=== PATIENT | female | born 1995 | race Caucasian/White ===

== ENCOUNTER → 2017-01-07 14:34 | Outpatient (CLI) | payer MEDICAID ==
[~2017-01-07 14:34] MED LIST: IBUPROFEN600 MG PO; PERCOCET 5-3251 TAB PO; PRENATAL COMPLE1 TAB PO
[2017-01-07 15:36] LABS: BASOPHILS 0.1 % (0.0-2.0); EOSINOPHILS 0.8 % (0-7); HEMATOCRIT 35.3 % (36.0-48.0); HEMOGLOBIN 11.6 g/dL (12-16); IMMATURE GRANULOCYTES 0.2 % (0-5); LYMPHOCYTES 17.5 % (15-50); MCH 28.1 pg (26.0-34.0); MCHC 32.9 g/dL (31.0-37.0); MCV 85.5 fL (80.0-100.0); MEAN PLATELET VOLUME 10.4 fL (7.4-10.4); MONOCYTES 9.6 % (2-11); NEUTROPHILS 71.8 % (40-80); PLATELET COUNT 200 10x3/uL (130-400); RBC 4.13 10x6/uL (4.00-5.40); WBC 9.1 10x3/uL (4.8-10.8)
[2017-01-07 15:41] LABS: APPEARANCE HAZY (CLEAR); BACTERIA MODERATE /hpf (NONE SEEN); BILIRUBIN NEGATIVE (NEGATIVE); COLOR YELLOW (YELLOW); GLUCOSE NEGATIVE (NEGATIVE); KETONE NEGATIVE (NEGATIVE); LEUKOCYTE ESTERASE TRACE (NEGATIVE); NITRITE NEGATIVE (NEGATIVE); PROTEIN NEGATIVE (NEGATIVE); RED CELLS - URINE OCC /hpf (0-5); UROBILINOGEN NORMAL (NORMAL)
[2017-01-07 16:00] LABS: ALKALINE PHOSPHATASE 107 U/L (46-116); ALT (SGPT) 12 U/L (10-68); BILIRUBIN - DIRECT 0.11 mg/dL (0.00-0.30); BILIRUBIN - INDIRECT 0.27 mg/dL (0.00-1.00); BILIRUBIN - TOTAL 0.38 mg/dL (0.2-1.3); CALC OSMOLALITY 273 mosm/kg (275-300); CALCIUM 8.5 mg/dL (8.5-10.1); CARBON DIOXIDE 21.3 mmol/L (21.0-32.0); CHLORIDE - SERUM 105 mmol/L (98-107); CREATININE - SERUM 0.6 mg/dL (0.6-1.3); GLUCOSE 71 mg/dL (74-106); PROTEIN - SERUM 6.9 g/dL (6.4-8.2); SODIUM 139 mmol/L (136-145); UREA NITROGEN 7 mg/dL (7-18); URIC ACID 3.9 mg/dL (2.6-7.2); eGFR NON AFRICAN AMERICAN > 90 mL/min (90-120)
[2017-01-20 09:51] VITALS: BMI 33.7
== END | disposition home or self-care (01) ==
LOC: D.LDO 14:34
PROVIDERS: Obstetrics & Gynecology
DX: Z34.03 Encounter for supervision of normal first pregnancy, third trimester (principal); Z3A.37 37 weeks gestation of pregnancy; R03.0 Elevated blood-pressure reading, without diagnosis of hypertension

== ENCOUNTER → 2017-01-14 10:20 | Outpatient (CLI) | payer MEDICAID ==
[2017-01-14 11:10] LABS: HEMATOCRIT 34.1 % (36.0-48.0); HEMOGLOBIN 10.9 g/dL (12-16); MCH 27.3 pg (26.0-34.0); MCV 85.3 fL (80.0-100.0); MEAN PLATELET VOLUME 10.2 fL (7.4-10.4); WBC 9.6 10x3/uL (4.8-10.8)
[2017-01-14 11:19] LABS: APPEARANCE CLEAR (CLEAR); BILIRUBIN NEGATIVE (NEGATIVE); COLOR STRAW (YELLOW); GLUCOSE NEGATIVE (NEGATIVE); KETONE NEGATIVE (NEGATIVE); LEUKOCYTE ESTERASE NEGATIVE (NEGATIVE); NITRITE NEGATIVE (NEGATIVE); PROTEIN NEGATIVE (NEGATIVE); UROBILINOGEN NORMAL (NORMAL)
[2017-01-14 11:24] LABS: CALC OSMOLALITY 274 mosm/kg (275-300); CALCIUM 9.1 mg/dL (8.5-10.1); CARBON DIOXIDE 22.9 mmol/L (21.0-32.0); CHLORIDE - SERUM 104 mmol/L (98-107); CREATININE - SERUM 0.5 mg/dL (0.6-1.3); GLUCOSE 91 mg/dL (74-106); SODIUM 138 mmol/L (136-145); UREA NITROGEN 10 mg/dL (7-18); URIC ACID 3.7 mg/dL (2.6-7.2); eGFR NON AFRICAN AMERICAN > 90 mL/min (90-120)
[2017-01-16 14:49] LABS: PROTEIN - URINE 29.8 mg/dL (0.0-11.9)
[2017-01-20 09:51] VITALS: BMI 33.7
== END | disposition home or self-care (01) ==
LOC: D.LDO 10:20
PROVIDERS: Obstetrics & Gynecology
DX: Z34.03 Encounter for supervision of normal first pregnancy, third trimester (principal); Z3A.38 38 weeks gestation of pregnancy; R03.0 Elevated blood-pressure reading, without diagnosis of hypertension

== ENCOUNTER → 2017-01-18 15:30 | Outpatient (CLI) | payer MEDICAID ==
[2017-01-20 09:51] VITALS: BMI 33.7
== END | disposition home or self-care (01) ==
LOC: D.ER 15:30
DX: Z34.93 Encounter for supervision of normal pregnancy, unspecified, third trimester (principal); Z3A.39 39 weeks gestation of pregnancy; R03.0 Elevated blood-pressure reading, without diagnosis of hypertension

== ENCOUNTER 2017-01-19 12:21 | Inpatient (IN) | payer MEDICAID ==
[~2017-01-19] VITALS: Ht 177.8 cm; Wt 106.6 kg
[~2017-01-19 12:21] MED LIST changes: -IBUPROFEN600 MG PO; -PERCOCET 5-3251 TAB PO
[2017-01-19 12:54] VITALS: BP 122/72; BMI 33.7
[2017-01-19 13:07] LABS: HEMATOCRIT 36.4 % (36.0-48.0); HEMOGLOBIN 11.9 g/dL (12-16); MCH 27.8 pg (26.0-34.0); MCHC 32.7 g/dL (31.0-37.0); MEAN PLATELET VOLUME 10.5 fL (7.4-10.4); RBC 4.28 10x6/uL (4.00-5.40); RDW 14.2 % (11.5-14.5); WBC 8.4 10x3/uL (4.8-10.8)
[2017-01-19 13:25] LABS: CALC OSMOLALITY 273 mosm/kg (275-300); CALCIUM 9.1 mg/dL (8.5-10.1); CARBON DIOXIDE 21.4 mmol/L (21.0-32.0); CHLORIDE - SERUM 104 mmol/L (98-107); CREATININE - SERUM 0.5 mg/dL (0.6-1.3); GLUCOSE 82 mg/dL (74-106); POTASSIUM - SERUM 4.3 mmol/L (3.5-5.1); SODIUM 138 mmol/L (136-145); UREA NITROGEN 10 mg/dL (7-18); URIC ACID 4.3 mg/dL (2.6-7.2); eGFR NON AFRICAN AMERICAN > 90 mL/min (90-120)
[2017-01-19 14:07] LABS: AMORPHOUS SEDIMENT <1+ /lpf (NONE SEEN); APPEARANCE HAZY (CLEAR); BILIRUBIN NEGATIVE (NEGATIVE); COLOR YELLOW (YELLOW); GLUCOSE NEGATIVE (NEGATIVE); KETONE NEGATIVE (NEGATIVE); LEUKOCYTE ESTERASE 1+ (NEGATIVE); MUCUS <1+ /lpf (NONE SEEN); NITRITE NEGATIVE (NEGATIVE); PROTEIN NEGATIVE (NEGATIVE); RED CELLS - URINE 0-5 /hpf (0-5); UROBILINOGEN NORMAL (NORMAL)
[2017-01-19 14:08] LABS: BACTERIA MODERATE /hpf (NONE SEEN)
--- NOTE | 2017-01-20 06:31 | NUR ---
PT LYING ON BACK IN BED TALKING ON CELL PHONE. FOB AT BEDSIDE. TUCKS, EPIFOAM, AND DERMAPLAST PROVIDED PER ORDERS. SEE EMAR. EXPLAINED USE OF ALL TO PT. PT VERBALIZES UNDERSTANDING. FUNDUS FIRM. U/1. SMALL LOCHIA RUBRA NOTED ON PERIPAD. FRESH ICE PACK PLACED AT PERINEUM. PT DENIES PAIN OR NEEDS AT THIS TIME. WILL CONT. TO MONITOR.
--- NOTE | 2017-01-20 07:15 | NUR ---
DR ORELLANA ON UNIT. VISITS WITH PT. NO NEW ORDERS.
[2017-01-20 07:22] LABS: RAPID PLASMA REAGIN Non Reactive (Non Reactive)
[2017-01-20 07:30] VITALS: BP 102/58
--- NOTE | 2017-01-20 07:30 | NUR ---
RECEIVED PT SITTING UP IN BED. AWAKE. AAO X 3. VSS. HRRR WITHOUT AUDIBLE MURMUR. BBS CLEAR. BS X 4. ABDOMEN SOFT/NON-DISTENDED. FUNDUS FIRM AT U/1. RUBRA LOCHIA MOD AMT. NO CLOTS OR HEAVY BLEEDING PER PT STATES. PERINEUM WITHOUT EDEMA. NEG HOMANS' SIGN. PPP. NO EDEMA NOTED TO BLE. SL TO LEFT WRIST. SITE CLEAR. PT DENIES NEEDS. FRESH ICE PACK PROVIDED TO PT. SR UP X 2. CALL LIGHT IN REACH.
--- NOTE | 2017-01-20 08:36 | NUR ---
PT SITTING UP IN BED. FEEDING INFANT. DENIES NEEDS OR C/O.
--- NOTE | 2017-01-20 09:30 | NUR ---
PT SITTING UP IN BED. CARING FOR . MUCH WARMTH SHOWN TOWARDS . PT REQUESTS AND RECEIVES FRESH ICE PACK FOR PERINEUM.
[2017-01-20 09:51] VITALS: Ht 177.8 cm; Wt 106.6 kg
--- NOTE | 2017-01-20 10:48 | NUR ---
PT AMBULATORY IN ROOM. DENIES NEEDS OR C/O. [place]ON [place] [facility] PROVIDED TO PT.
--- NOTE | 2017-01-20 14:08 | NUR ---
PT IS UP AMBULATING IN HER ROOM. STATES THAT SHE WOULD LIKE TO HAVE A SPRITE. GOT HER A SPRITE. PT STATES THAT SHE IS HURTING. PAIN IS A LEVL 5 IN HER ABDOMEN. GOT HER SOME PAIN MED.
--- NOTE | 2017-01-20 14:17 | NUR ---
PT WAS GIVEN PERCOCET 10/325 AND MOTRIN 600 MG FOR PAIN OF PERINEUM AND ABDOMEN.
--- NOTE | 2017-01-20 16:17 | NUR ---
PT IS LYING IN BED WITH BABY. OFFERS NO COMPLAINTS. STATES THAT SHE DOES NOT NEED ANYTHING. BED IS LOW, SIDE RAILS UP X 2 AND CALL LIGHT IN REACH.
--- NOTE | 2017-01-20 17:22 | NUR ---
FOB IS AT BEDSIDE. HE WAS QUESTIONING TEST THAT WERE SUPPOSE TO DONE ON THE BABY . I REFERRED HIM TO THE NURSERY STAFF. PT STATES THAT SHE IS IN NO PAIN AT THIS TIME. SHE IS HOLDING BABY. BED IS LOW, CALL LIGHT IN REACH. SIDE RAILS UP X 2.
--- NOTE | 2017-01-20 18:23 | NUR ---
PT IS RESTING IN BED. PT OFFERS NO COMPLAINTS FOB AT BEDSIDE. BED IS LOW, SIDE RAILS UP X 2 AND CALL LIGHT IN REACH.
--- NOTE | 2017-01-20 18:37 | NUR ---
PT IS LYING IN BED. SHE STATES SHE IS GOING TO GET A SHOWER WHEN HER BOYFRIEND GETS BACK. GATHERED THINGS UP FOR HER SHOWER. SHE WILL LET US KNOW WHEN SHE IS READY. BED IS LOW, SIDE RAILS UP X 2 AND CALL LIGHT IN REACH. NO COMPLAINTS AT THIS TIME.
--- NOTE | 2017-01-20 19:36 | NUR ---
PT. WITH QUESTIONS REGARDING USE OF ITEMS IN BATHROOM IE: DERMOPLAST SPRAY, EPIFOAM AND TUCKS. REVIEWED WITH PT. ACTIONS OF EACH PRODUCT AND HOW TO USE. PT. STATED UNDERSTANDING TO INSTRUCTIONS. REVIEWED ALSO USE OF BETADINE AND WATER FOR ALLYN CARE AND PT. ALSO STATED UNDERSTANDING. FUNDUS FIRM U/2 AND LOCHIA RUBRA SCANT TO MOD. PT. STATES DESIRE TO SHOWER. INSTRUCTED PT. TO TAKE TEPID SHOWER AND NOT HOT SHOWER TO AVOID DIZZINESS AND FALL RISK. PT. IS AGREEABLE AND STATED UNDERSTANDING.
[2017-01-20 19:45] VITALS: BP 151/86
--- NOTE | 2017-01-20 19:45 | NUR ---
PT RECEIVED SITTING UP IN BED AAOX3. FOB AT BEDSIDE. VSS. S/L NOTED TO LEFT HAND. DRESSING CDI. PT RATES PAIN 5/10. HEART RRR. LUNG SOUNDS CLEAR BILATERALLY. BOWEL SOUNDS ACTIVE X4 QUADRENTS. ABDOMEN SOFT. FFM 2 BELOW UMBILICUS. PT STATES LOCHIA HAS BEEN LIGHT TO MODERATE THROUGHOUT THE DAY. MODERATE LOCHIA RUBRA NOTED TO ALLYN PAD AT THIS TIME. PERINEAL AREA FREE OF EDEMA. COVERED S/L AT THIS TIME SO PT COULD GET UP IN THE SHOWER. TOWELS PROVIDED. BED LINENS CHANGED AT THIS TIME. PT UP USING SHOWER. DENIES NEEDS. BED LOW. PHONE AND CALL LIGHT IN REACH. SRX2.
--- NOTE | 2017-01-20 20:23 | NUR ---
PT LYING IN BED WITH IN ARMS. LOOKING LOVINGLY AT AT THIS TIME. PT REQUESTS LEMON [place] AT THIS TIME. DENIES OTHER NEEDS.
--- NOTE | 2017-01-20 21:19 | NUR ---
ADMINISTERED MILK OF MAG PER ORDERS AT THIS TIME. FOB AND INFANT AT BEDSIDE. DENIES NEEDS. BED LOW. PHONE AND CALL LIGHT IN REACH. SRX2.
--- NOTE | 2017-01-20 22:46 | NUR ---
PT RESTING QUIETLY AT THIS TIME. FOB AT BEDSIDE. DENIES NEEDS. BED LOW. PHONE AND CALL LIGHT IN REACH. SRX2.
[2017-01-21 00:15] VITALS: BP 132/75
--- NOTE | 2017-01-21 00:16 | NUR ---
PT RESTING QUIETLY IN BED AT THIS TIME WITH EYES CLOSED. AROUSED EASILY. DENIES NEEDS AT THIS TIME. FOB AT BEDSIDE. BED LOW. PHONE AND CALL LIGHT IN REACH. SRX2.
--- NOTE | 2017-01-21 02:15 | NUR ---
PT RESTING QUIETLY AT THIS TIME WITH EYES CLOSED. RESPIRATIONS EVEN, NON-LABORED. NO ACUTE DISTRESS NOTED AT THIS TIME. BED LOW. PHONE AND CALL LIGHT IN REACH. SRX2.
--- NOTE | 2017-01-21 05:23 | NUR ---
PT SITTING UP IN BED WATCHING TV AT THIS TIME. REQUESTS SPRITE AND MEDICATION FOR PAIN 03/31. ADMINISTERED PERCOCET PO PER ORDERS AT THIS TIME. PT DENIES OTHER NEEDS. BED LOW. PHONE AND CALL LIGHT IN REACH. SRX2.
[2017-01-21 05:26] LABS: HEMATOCRIT 31.7 % (36.0-48.0); MCH 27.4 pg (26.0-34.0); MCHC 31.5 g/dL (31.0-37.0); MCV 86.8 fL (80.0-100.0); MEAN PLATELET VOLUME 10.2 fL (7.4-10.4); RBC 3.65 10x6/uL (4.00-5.40); RDW 14.4 % (11.5-14.5); WBC 9.6 10x3/uL (4.8-10.8)
--- NOTE | 2017-01-21 06:06 | NUR ---
REASSESSED PTS PAIN AT THIS TIME. RATES PAIN 2/10. DENIES NEEDS.
--- NOTE | 2017-01-21 07:27 | NUR ---
PT IS SITTING UP IN BED. FOB AND BABY AT BEDSIDE. STATES HER PAIN IS A 1/10. SHE HAS HAD SOME CRAMPING PAIN. SHE HAS BEEN UP AND AMBULATING IN THE ROOM. SHE IS VOIDING WITHOUT DIFFICULTY. GEN- AWAKE AND ALERT. LUNGS- CLEAR. HEART- RRR. ABD- SOFT,TENDER. BS + . SMALL LOCIA RUBRA. EXT- NO EDEMA. PT IS USING DERMAPLAST, EPIFOAM AND BETADINE AND WATER TO EPISIOTOMY. BED IS LOW, SIDE RAILS UP X 2 AND CALL LIGHT IS IN REACH.
--- NOTE | 2017-01-21 07:27 | OP ---
PATIENT NAME: YUE AGUIRRE MEDICAL RECORD: [id number] :95 LOCATION:[id number] ADMISSION DATE:01/19/17 SURGEON: TIO ORELLANA MD DATE OF OPERATION: 01/20/2017 Delivery Note Spontaneous vaginal delivery of male infant weighing 7 pounds, 2.5 ounces, Apgars 8 and 9. Tight nuchal cord x 1 required ligation prior to delivery of the thorax. Epidural anesthesia. Second-degree midline laceration repaired using 2-0 chromic suture and a labial laceration repaired using 2-0 chromic suture. Spontaneous delivery of intact-appearing placenta. ESTIMATED BLOOD LOSS: 400 cc. COMPLICATIONS OF PROCEDURE: None. TRANSINT:[id number] Voice Confirmation ID: [id number] DOCUMENT ID: [id number] TIO ORELLANA MD at 0727 CC: [id number] DICTATION DATE: 01/20/17 0351 ASBESTOS SIDING INSTALLER: 01/20/17 0821 ADM IN [place] [id number] [place] [address]
[2017-01-21 07:30] VITALS: BP 124/79
--- NOTE | 2017-01-21 08:30 | NUR ---
PT OFFERS NO COMPLAINTS. HER BOYFRIEND IS HEADED TO WORK. HE TOOK HER PRESCRIPTIONS TO BE FILLED FOR HER SINCE SHE IS BEING DISCHARGED. SHE WILL BE ROOMING IN SINCE BABY WILL NOT BE DISCHARGED.
[2017-01-21] MEDS ORDERED: IBUPROFEN600 MG PO (08:36)
[2017-01-21] MEDS ORDERED: PERCOCET 5-3251 TAB PO (08:36)
--- NOTE | 2017-01-21 09:15 | NUR ---
PT WAS DISCHARGED AND MOVED TO 1215 TO ROOM IN. DISCHARGE INSTRUCTIONS WERE DISCUSSED AND ROOMING IN WAS DISCUSSED. PRESCRIPTIONS GIVEN TO BOYFRIEND TO GET FILLED. FU APPT AND HANDOUTS GIVEN TO PT.
--- NOTE | 2017-01-21 10:44 | NUR ---
PT RECEIVED MMR VACCINE
== END 2017-01-21 09:30 | disposition home or self-care (01) | DRG 775 ==
LOC: D.LD 12:21
PROVIDERS: ADMIT Obstetrics & Gynecology
PROC: 10E0XZZ Delivery of Products of Conception, External Approach (ICD-10-PCS; principal; 2017-01-20)
PROC: 0KQM0ZZ Repair Perineum Muscle, Open Approach (ICD-10-PCS; 2017-01-20)
DX: O99.824 Streptococcus B carrier state complicating childbirth (principal); Z3A.39 39 weeks gestation of pregnancy; Z37.0 Single live birth; O70.0 First degree perineal laceration during delivery; O69.81X0 Labor and delivery complicated by cord around neck, without compression, not applicable or unspecified; O16.4 Unspecified maternal hypertension, complicating childbirth; Z87.891 Personal history of nicotine dependence